=== PATIENT | male | born 1990 | race Caucasian/White ===

== ENCOUNTER 2025-08-21 19:46 | Emergency (ER) | payer OTHER ==
[~2025-08-21] VITALS: Ht 170.1 cm; Wt 68.0 kg
[2025-08-21 21:32] LABS: BASO # 0.1 10*3/uL (0.0-0.1); BASO % 0.5 % (0.0-1.0); EOS # 0.2 10*3/uL (0.0-0.4); EOS % 1.8 % (1.0-4.0); MEAN CELL VOLUME 84.0 fl (80.0-94.0); MEAN CORPUSCULAR HGB 27.9 pg (27.0-31.0); MEAN PLATELET VOLUME 8.7 fl (9.6-12.3); MONO # 0.9 10*3/uL (0.1-1.0); MONO % 8.4 % (3.0-9.0); NEUT # 7.5 10*3/uL (2.3-7.9); NEUT % 66.5 % (47.0-73.0); NUCLEATED RED BLOOD CELL 0.0 % (0.0-0.0); NUCLEATED RED BLOOD CELL 0.0 10*3/uL (0.0-0.0); PLATELET COUNT AUTOMATED 371 10*3/uL (130-400); RED CELL DISTRI WIDTH 12.6 % (0-14.5)
[2025-08-21] MEDS ORDERED: Acetaminophen/Oxycodone 5 MG/325 MG TABLET PO ONE ×2 (21:35→22:05)
[2025-08-21 21:46] LABS: BUN 19 mg/dl (9-23)
[2025-08-21] MEDS ORDERED: NAPROSYN500 MG PO (22:02)
== END 2025-08-21 22:35 | disposition home or self-care (01) ==
LOC: ED 19:46
PROVIDERS: Nurse Practitioner Family
DX: K04.7 Periapical abscess without sinus (principal)